=== PATIENT | male | born 1980 ===

== ENCOUNTER 2021-08-30 19:06 | Emergency (ER) | payer SELFPAY ==
[~2021-08-30 19:06] MED LIST: Iopamidol-370 76% 500 ML 1 ML ONE
[2021-08-30] MEDS ORDERED: Ondansetron ODT 8 MG TAB ONE (19:18)
[2021-08-30 19:47] LABS: #Lymphocytes 0.5 thou/uL (1.20-3.40); #Monocytes 0.5 thou/uL (0.11-0.59); #Neutrophils 3.7 thou/uL (1.40-6.50); %Basophils 0.5 % (0.0-1.0); %Eosinophils 0.1 % (0.0-10.0); %Lymphocytes 11.1 % (21.0-51.0); %Monocytes 9.8 % (0.0-10.0); %Neutrophils 78.4 % (42.0-75.0); Hemoglobin 17.8 g/dL (14.0-18.0); Mean Corpuscular Hemoglobin 31.8 pg (27.0-31.0); Mean Corpuscular Volume 91.1 fL (78.0-98.0); Mean Platelet Volume 9.9 fL (7.4-10.4); Platelet Count 140 thou/uL (130-400); RBC Distribution Width 11.6 % (11.5-14.5); Red Blood Cell (RBC) Count 5.58 mill/uL (4.70-6.10); White Blood Cell (WBC) Count 4.7 thou/uL (4.8-10.8)
[2021-08-30] MEDS ORDERED: Ondansetron PF 4 MG/2 ML Vial ONE (19:48)
[2021-08-30] MEDS ORDERED: Morphine 4 MG/ML VIAL ONE (19:48)
[2021-08-30 20:09] LABS: ALT (SGPT) 81 U/L (8-55); AST (SGOT) 48 U/L (5-34); Albumin 4.6 g/dL (3.5-5.0); Alkaline Phosphatase 56 U/L (40-110); Anion Gap 22 mmol/L (10-20); BUN (Urea Nitrogen) 17 mg/dL (8.9-20.6); Bilirubin, Total 0.6 mg/dL (0.2-1.2); Calc. Creatinine Clearance 0 mL/min (70-130); Calcium 9.7 mg/dL (7.8-10.44); Carbon Dioxide 22 mmol/L (22-29); Chloride 96 mmol/L (98-107); Globulin 3.1 g/dL (2.4-3.5); Glucose 159 mg/dL (70-105); Potassium 3.8 mmol/L (3.5-5.1); Protein, Total 7.7 g/dL (6.0-8.3); Sodium 136 mmol/L (136-145)
[2021-08-30] MEDS ORDERED: Promethazine HCl 25 MG/ML VIAL ONE (21:18)
== END 2021-08-30 22:50 | disposition home or self-care (01) ==
LOC: ERS 19:06
DX: R10.84 Generalized abdominal pain (principal); R11.2 Nausea with vomiting, unspecified
CPT/HCPCS: 74177; 80053; 83690; 84484; 85025; 96365; 96375; J2270; J2405; J2550; Q0162